=== PATIENT | male | born 1960 | race Caucasian/White ===

== ENCOUNTER 2021-04-17 13:05 | Outpatient (CLI) | payer BC, SELFPAY ==
--- NOTE | 2021-04-17 | ECHO_ITS ---
Patient Info Name: Ariel Zambrano Age: 60 years : 1960 Gender: Male Ht: 72 in Wt: 280 lbs BSA: 2.59 m2 HR: 87 bpm BP: 137 / 78 mmHg Technical Quality: Fair Exam Date: 04/17/2021 1:29 PM Exam Location: [facility] Patient Status: Outpatient Admit Date: 04/17/2021 Staff Ordering Physician: Bob, Lashell NARANJO Concrete Craftsman: Dolores Berry RDCS Attending Provider: Bob, Lashell NARANJO Referring Physician: Bob AIKEN; Exam Type: CA echo doppler color flow Study Info Indications - dyspnea hx/o cad stent Complete two-dimensional, color flow and Doppler transthoracic echocardiogram is performed. Summary 1. Complete two-dimensional, color flow and Doppler transthoracic echocardiogram is performed. 2. Mild LV enlargement, mild LVH; normal LV systolic function, ejection fraction 65-70%; grade 1 diastolic dysfunction. Mild RV enlargement with mild hypokinesis. Mild left atrial enlargement. Normal mitral valve structure, no significant MR. Normal aortic valve structure, no aortic stenosis or regurgitation. Trivial TR, RVSP 35 mmHg. Sinus bradycardia. Left Ventricle Left ventricular chamber dimension is mildly enlarged. Left ventricular systolic function is normal, estimated at 65-70%. There is mildly increased left ventricular wall thickness. The left ventricular diastolic function is grade I diastolic dysfunction. Right Ventricle Right ventricular chamber dimension is mildly enlarged. Right ventricular systolic function is reduced. Left Atria Left atrial chamber dimension is mildly enlarged. Right Atria Right atrial chamber dimension is normal. Aortic Valve The aortic valve is normal. There is no aortic valve stenosis. Pulmonic Valve The pulmonic valve is not well visualized. Mitral Valve The mitral valve has normal leaflets. There is no mitral valve regurgitation. Tricuspid Valve The tricuspid valve leaflets are normal. There is trace tricuspid valve regurgitation. Inferior Vena Cava Normal inferior vena cava with >50% collapse upon inspiration consistent with normal right atrial pressure, 10 mmHg. Aorta The aortic root size at the sinus of Valsalva is normal. Left Ventricular Outflow Tract Name Value Normal LVOT 2D LVOT Diameter 2.1 cm LVOT Doppler LVOT Peak Gradient 5 mmHg LVOT Mean Gradient 3 mmHg LVOT VTI 29 cm LVOT VTI/AV VTI Ratio 1.1 LVOT Stroke Volume 98 ml LVOT CO 17.7 l/min LVOT CI 6.8 l/min/m2 Pulmonic Valve Name Value Normal PV Doppler PV Peak Gradient 3 mmHg Mitral Valve Name
== END 2021-04-17 13:06 | disposition home or self-care (01) ==
PROVIDERS: PCP Physician Assistant; Visit Provider Physician Assistant
DX: R06.00 Dyspnea, unspecified (principal)
CPT/HCPCS: 93306

== ENCOUNTER 2021-04-21 18:26 | Emergency (ER) | payer BC, SELFPAY ==
[2021-04-21 18:37] VITALS: BP 124/73; PULSE 58; RESP 18; TEMP 36.4; O2SAT 97
[2021-04-21 18:47] VITALS: BP 124/73; PULSE 58; RESP 18; TEMP 36.4; O2SAT 97
--- NOTE | 2021-04-21 19:01 | ED.SKABFB ---
HPI - Skin/Abscess/Foreign Bdy General Chief complaint: Skin/Abscess/Foreign Body Stated complaint: rash Time Seen by Provider: 04/21/21 18:49 Source: patient and RN notes reviewed Mode of arrival: ambulatory Limitations: no limitations History of Present Illness HPI narrative: Patient presents today complaining of bilateral arm rash x2 days. Believes his rash started after he pet feral cat. Reports some itching and denies pain. He has tried some calamine lotion without relief. Patient does take Eliquis. He has a dressing to his right wrist due to a debridement surgery after a cat scratch a few months ago. This wound continues to heal. MD complaint: rash Related Data Home Medications Medication Instructions Recorded Confirmed apixaban [Eliquis] mg 04/21/21 atorvastatin 04/21/21 gabapentin 04/21/21 metoprolol succinate PO 04/21/21 Allergies Allergy/AdvReac Type Severity Reaction Status Date / Time sertraline Allergy Severe Unknown Verified 04/21/21 18:35 Review of Systems Review of Systems: CONSTITUTIONAL: Denies body aches, fever, chills, or sweats. EYES: Denies visual changes, redness, or discharge. ENT: Denies rhinorrhea, congestion, sore throat, or otalgia. CARDIOVASCULAR: Denies chest pain, palpitations, or edema. RESPIRATORY: Denies cough or dyspnea. GASTROINTESTINAL: Denies abdominal pain, nausea, vomiting, or diarrhea. GENITOURINARY: Denies dysuria or hematuria. SKIN: Denies wounds.+ Pruritic rash MUSCULOSKELETAL: Denies back pain, joint pain, or myalgia. NEUROLOGIC: Denies headache, numbness, tingling, or weakness. PSYCH: Denies depression or anxiety. [facility] Past Medical History Medical History (Updated 04/21/21 @ 19:06 by Joanne Mathis, [facility], ) High cholesterol History of DVT (deep vein thrombosis) History of pulmonary embolism Social History Social History Smoking status: Never smoker Second hand tobacco smoke exposure: No Alcohol intake: never Comments At time of signature, I have reviewed and agree with nursing past medical, surgical, social and family history unless otherwise noted. Please see nursing chart for further information. There is no relevant family history pertinent to the presenting complaint Exam Narrative: GENERAL: Well-appearing, well-nourished, and in no acute distress. HEAD: Normocephalic, atraumatic. EYES: EOMI. No redness or drainage. Conjunctivae normal. ENT: Mucous membranes pink and moist. NECK: Normal AROM. CHEST: No respiratory distress. EXTREMITIES: Normal range of motion. No edema. SKIN: Warm, dry. Capillary refill normal. Normal skin turgor. Petechial rash to bilateral forearms and left upper arm. Petechiae has formed around the rash on the left arm, likely secondary to Eliquis use. No signs of secondary bacterial infection. Surgical scar noted to the right forearm. NEURO: No focal deficits. Alert and oriented x3. Gait steady. PSYCH: Normal affect. No signs of depression or anxiety. Course Vital Signs Vital signs: Vital Signs Temperature 97.6 F 04/21/21 18:37 Pulse Rate 58 L 04/21/21 18:37 Respiratory Rate 18 04/21/21 18:37 Blood Pressure 124/73 04/21/21 18:37 Pulse Oximetry 97 04/21/21 18:37 Temperature 97.6 F 04/21/21 18:47 Pulse Rate 58 L 04/21/21 18:47 Respiratory Rate 18 04/21/21 18:47 Blood Pressure 124/73 04/21/21 18:47 Pulse Oximetry 97 04/21/21 18:47 Reviewed. Pt has been instructed to follow up with his PCP regarding his elevated blood pressure today. MDM - Skin/Abscess/Foreign Bdy Differential Diagnosis Differential diagnosis: Likely viral exanthem, urticaria, cellulitis, eczema, insect bites, impetigo and contact dermatitis Critical Care Time Critical Care Time Critical Care Time: No Discharge Plan Discharge Clinical Impression: Contact dermatitis Qualifiers: Contact dermatitis type: unspecified Contact dermatitis trigger: unspecified trigger Qualified Code(s):
== END 2021-04-21 19:09 | disposition home or self-care (01) ==
PROVIDERS: Emergency Provider Nurse Practitioner
DX: L25.9 Unspecified contact dermatitis, unspecified cause (principal); E78.00 Pure hypercholesterolemia, unspecified; Z86.718 Personal history of other venous thrombosis and embolism; Z86.711 Personal history of pulmonary embolism
CPT/HCPCS: 99213; G0463

== ENCOUNTER 2021-05-08 16:21 | Emergency (ER) | payer BC, SELFPAY ==
[2021-05-08 16:27] VITALS: BP 121/85; PULSE 54; RESP 16; TEMP 36.2; O2SAT 96
--- NOTE | 2021-05-08 16:48 | ED.SKABFB ---
HPI - Skin/Abscess/Foreign Bdy General Chief complaint: Skin/Abscess/Foreign Body Stated complaint: rash Time Seen by Provider: 05/08/21 16:48 Source: patient and RN notes reviewed Mode of arrival: ambulatory Limitations: no limitations History of Present Illness HPI narrative: 60-year-old male presents to the [facility] with complaints of a reoccurring rash. Was here on the sixth, 2-1/2 weeks ago and diagnosed with contact dermatitis after petting a cat. Was prescribed prednisone, followed up with primary care provider who then prescribed him doxycycline. Patient reports that he finished his doxycycline. Related Data Home Medications Medication Instructions Recorded Confirmed apixaban [Eliquis] mg 04/21/21 atorvastatin 04/21/21 gabapentin 04/21/21 metoprolol succinate PO 04/21/21 Allergies Allergy/AdvReac Type Severity Reaction Status Date / Time sertraline Allergy Severe Unknown Verified 05/08/21 16:47 Review of Systems Review of Systems: All systems reviewed & are unremarkable except as noted in HPI and below Constitutional: Constitutional: Reports no additional constitutional complaints, Denies chills and Denies fever(s) Eyes: Eyes: Reports no additional eye complaints ENT: Reports system reviewed and no additional complaints, except as documented Cardiovascular: Cardiovascular: Reports no additional cardiovascular complaints and Denies chest pain Respiratory: Respiratory: Reports no additional respiratory complaints, Denies chest congestion, Denies cough, Denies dyspnea and Denies wheezing Gastrointestinal: Gastrointestinal: Reports no additional gastrointestinal complaints Musculoskeletal: Musculoskeletal: Reports no additional musculoskeletal complaints, Denies back pain, Denies myalgias, Denies arthralgias, Denies joint swelling and Denies muscle cramps Integumentary/Breasts: Skin/Breast: Reports as per HPI and Reports rash (Bilateral arms) Neurologic: Reports system reviewed and no additional complaints, except as documented Psychiatric: Psychiatric: Reports no additional psychiatric complaints Allergic/Immunologic: Allergic/Immunologic: Reports no additional allergic/immunologic complaints [facility] Past Medical History Medical History (Updated 05/08/21 @ 16:54 by Ca Jenkins) High cholesterol History of DVT (deep vein thrombosis) History of pulmonary embolism Social History Social History Smoking status: Never smoker Second hand tobacco smoke exposure: No Alcohol intake: never Comments At the time of my signature, I reviewed and agree with the nursing past medical, surgical, social, and family history. There is no relevant family history pertinent to the patient complaint. Exam Const: General: healthy appearing, no acute distress and alert Nutritional Appearance: obese Orientation/consciousness: patient oriented x3 Limitations: no limitations HENMT: Head: normal to inspection Ears: external ears normal Eyes: Conjunctivae: conjunctivae normal Pupils: Equal, round and reactive pupils present Neck: Neck: normal visual inspection, no lymphadenopathy and no meningeal signs Chest: Chest palpation & inspection: normal inspection of the chest Resp: Effort & Inspection: normal respiratory effort and no use of accessory muscles Auscultation: clear to auscultation bilaterally, no crackles, no rales, no rhonchi and no wheezes Cardio: Rate: regular rate Rhythm: regular rhythm Back/Spine/Pelvis: Back: no CVA tenderness Skin: Other: Rashes bilateral arms red, patient describes as itchy. Neuro: General: patient oriented x3, moves all extremities, no meningeal signs and no focal motor deficits Speech: normal speech Gait exam (Neuro): Normal gait present Extrem: General: normal to inspection Psych: Appearance: grossly normal and well kempt Mental Status: mental status grossly normal Affect: normal affect Attitude: cooperat
== END 2021-05-08 16:58 | disposition home or self-care (01) ==
PROVIDERS: Emergency Provider Nurse Practitioner
DX: L23.81 Allergic contact dermatitis due to animal (cat) (dog) dander (principal); E78.00 Pure hypercholesterolemia, unspecified; Z86.718 Personal history of other venous thrombosis and embolism; Z86.711 Personal history of pulmonary embolism
CPT/HCPCS: 99213; G0463

== ENCOUNTER 2021-06-13 09:08 | Outpatient (RCR) | payer BC, SELFPAY ==
--- NOTE | 2021-06-13 09:24 | PCPTNOTE ---
pt here for PT eval; he has an open wound on L lower leg with dressing intact. And multiple areas of scabs and red areas over both R and L lower legs. Pt stated he is to go to wound care for his legs, but has not figured out where to go with his insurance yet. Discussed basic lymphedema treatment with him- elevate legs, perform active ankle exercises and walk as tolerated, heal wounds first, then therapy for MLD, treatment and compression knee high garments. He voiced understanding--will go to wound care then return for PT treatment. Issued pt a card with PT name and number for any additional questions.
== END 2021-08-28 12:42 | disposition home or self-care (01) ==
LOC: ANHPT 09:08
PROVIDERS: PCP Physician Assistant
DX: I87.2 Venous insufficiency (chronic) (peripheral) (principal); I89.0 Lymphedema, not elsewhere classified
CPT/HCPCS: 99199

== ENCOUNTER 2021-07-10 07:29 | Outpatient (RCR) | payer BC, SELFPAY ==
--- NOTE | 2021-06-26 10:47 | PM.CNGS ---
Assessment and Plan Assessment and plan (1) Venous stasis ulcer: Code(s): I83.009 - Varicose veins of unspecified lower extremity with ulcer of unspecified site; L97.909 - Non-pressure chronic ulcer of unspecified part of unspecified lower leg with unspecified severity Status: Acute Assessment and Plan: Patient has multiple lower extremity ulcers and weeping edema. He was seen with the wound care nurses in the wound clinic. Wound photos and measurements taken for initial evaluation. Will apply silver gel and Mepilex to open wounds. Will also do bilateral lower extremity wraps to help with edema. Discussed leg elevation and low-sodium diet to help with edema. Continue medical management with furosemide per PCP. Patient denies prior history of peripheral vascular disease, but dorsalis pedis pulses are faintly dopplerable. I would like to get duplex arterial ultrasound and ABIs to help assess if he needs vascular surgery evaluation. Will arrange this to be done as an outpatient. Will plan to us have patient return to wound clinic twice weekly initially. I will see him back in 2 weeks in the wound clinic to reassess. (2) Bilateral lower extremity edema: Code(s): R60.0 - Localized edema Status: Acute Assessment and Plan: Bilateral lower extremity wraps. (3) Peripheral vascular disease: Code(s): I73.9 - Peripheral vascular disease, unspecified Status: Acute Assessment and Plan: Check duplex arterial lower extremity ultrasound and ABIs (4) Tobacco use: Code(s): Z72.0 - Tobacco use Status: Acute Assessment and Plan: discussed smoking cessation. Patient had previously quit smoking but has restarted smoking which he says is due to stress. (5) HTN (hypertension): Code(s): I10 - Essential (primary) hypertension Status: Inactive (6) High cholesterol: Code(s): E78.00 - Pure hypercholesterolemia, unspecified Status: Inactive (7) CAD (coronary artery disease): Code(s): I25.10 - Atherosclerotic heart disease of [place] coronary artery without angina pectoris Status: Inactive (8) History of DVT (deep vein thrombosis): Code(s): Z86.718 - Personal history of other venous thrombosis and embolism Status: Inactive History of Present Illness Consult details Consult date: 06/26/21 Reason for consult: wound care Requesting physician: BobLashell PA Narrative: A 60-year-old man who presents with bilateral lower extremity wounds. He states that he has had problems with swelling and circulation in his legs for years, but over the past several months he has had multiple wounds developed. He has had blisters that opened drained serous fluid. Now he has multiple wounds that are not healing. He denies a prior history of diabetes. He has had a history of DVT PE. He has been trying a triple antibiotic ointment on the wounds, but this has not been helping. He was recently started on furosemide to help with lower extremity edema. He denies claudication. Review of Systems Review of Systems: All systems reviewed & are unremarkable except as noted in HPI and below Constitutional: Constitutional: Denies chills, Denies fever(s), Denies headache(s) and Denies weight loss Eyes: Eyes: Denies change in vision ENT: Denies dizziness, Denies headache(s), Denies neck mass and Denies throat swelling Cardiovascular: Cardiovascular: Denies chest pain, Denies lightheadedness and Denies dyspnea Respiratory: Respiratory: Denies cough, Denies dyspnea and Denies wheezing Gastrointestinal: Gastrointestinal: Denies abdominal pain, Denies change in bowel habits, Denies nausea and Denies vomiting Genitourinary: Genitourinary: Denies hematuria and Denies dysuria Musculoskeletal: Musculoskeletal: Reports as per HPI Integumentary/Breasts: Skin/Breast: Reports as per HPI Neurologic: Denies dizziness and Denies headache(s) Allergi
[2021-06-26 11:05] VITALS: BMI 40.2
--- NOTE | 2021-07-10 13:19 | PCWOUND ---
WOCN NOTE Patient seen at [facility] wound [place] for treatment of venous stasis ulcers to the bilateral lower legs. Patient changes his dressings daily. For a 30 day supply: Patient uses 4 Mepilex transfer per change(120/month), 5 ABD pads per change (180/month) and 2 kerlex rolls per change (60/month).
--- NOTE | 2021-07-14 16:27 | P.PNWOUND_ITS ---
Wound Care Note Date/Time: 07/10/21 11:00 History: Patient presented to wound clinic on 06/26/2021 with multiple bilateral lower extremity ulcers. He was also noted to have weeping 4+ pitting edema. Local wound care with compression dressings and topical ointments were applied. At the time of initial visit, lower extremity pulses were somewhat weak but dopplerable. Arterial workup was discussed and lower extremity arterial ultrasound and ABIs was going to be ordered. Before able to set this up, patient then presented to [facility] for further workup. No further vascular workup was done at that time, however he was given instructions to follow-up with a vascular surgeon from [facility]. Patient states that when he called to make this appointment he found out that this vascular surgeon did not take his insurance. He has also previously been denied at [place] due to insurance as well. His wounds have continued to worsen despite local treatment. He is also experiencing a lot of pain with his lower extremities. Wound history: Multiple bilateral lower extremity ulcers with 4+ weeping edema. Wound approximation: No Drainage: Serous Dressings: silver gel with Mepilex transfers applied Assessment and Plan Assessment and plan (1) Venous stasis ulcer: Code(s): I83.009 - Varicose veins of unspecified lower extremity with ulcer of unspecified site; L97.909 - Non-pressure chronic ulcer of unspecified part of unspecified lower leg with unspecified severity Status: Acute Assessment and Plan: * Local wound care of the venous stasis ulcers has not helped with any improvement of the wounds. He is now having more constant leg pain which has me concerned for vascular inflow problems. He went to the emergency department previously but unfortunately had no further arterial vascular workup completed at that time. I discussed with patient that we do not have a vascular surgeon on staff here at this hospital and he may need to present to another emergency department for further workup. I will try to find a vascular surgeon that will accept his insurance to see him as soon as possible, but I did reiterate that he may need to go to the emergency department if this has not been resolved in the next couple days. Will have patient continue local wound care at this time and arrange for the supplies needed, but further follow-up in this wound clinic will not likely be of much benefit given his current condition. (2) Bilateral lower extremity edema: Code(s): R60.0 - Localized edema Status: Acute (3) Peripheral vascular disease: Code(s): I73.9 - Peripheral vascular disease, unspecified Status: Acute (4) Tobacco use: Code(s): Z72.0 - Tobacco use Status: Acute Exam Extrem: Other: multiple bilateral lower extremity ulcers with 4+ pitting edema. Yellow exudate present and wound bases. Tenderness throughout lower extremities.
== END 2021-09-11 08:20 | disposition home or self-care (01) ==
LOC: ANHWOC 07:29
PROVIDERS: PCP Physician Assistant; Visit Provider Surgery
DX: L97.819 Non-pressure chronic ulcer of other part of right lower leg with unspecified severity (principal); L97.829 Non-pressure chronic ulcer of other part of left lower leg with unspecified severity
CPT/HCPCS: 29581; 99212; A9270; G0463

== ENCOUNTER 2022-02-25 05:01 | Inpatient (IN) | payer BC, SELFPAY ==
--- NOTE | ~2022-02-25 | CT_ITS ---
EXAMINATION: CT abdomen pelvis wo con DATE: 02/25/2022 06:05 INDICATION: Epigastric pain with nausea and vomiting TECHNIQUE: Computed tomography (CT) of the abdomen and pelvis was performed without intravenous contr ast. The dose-length product was 1472.32 mGy-cm. Automated exposure control and iterative reconstruct ion technique were employed. COMPARISON: CT dated 04/13/2011 FINDINGS: There is dependent atelectasis. No significant pleural or pericardial effusion. There is pe ripancreatic infiltration of the fat consistent with acute pancreatitis. There are punctate pancreati c calcifications suggesting chronic pancreatitis. Calcified granulomas of the liver and spleen are present. Gallbladder is present. The adrenal glands and kidneys are unremarkable. Bladder is decompressed. Nonobstructive bowel gas pattern. Colonic dive rticulosis without evidence for diverticulitis. Normal appendix. No free air or free fluid. Left comm on iliac vein stent is present. IMPRESSION: 1. Acute uncomplicated pancreatitis. Reviewed, dictated and finalized at location A.
[2022-02-25 05:10] VITALS: BP 217/103; PULSE 60; RESP 16; TEMP 36.2; O2SAT 98
--- NOTE | 2022-02-25 05:20 | ECG_ITS ---
Measurements Intervals [place] Rate: 65 P: 64 NM: 161 QRS: 20 QRSD: 82 T: 33 QT: 418 QTc: 436 Interpretive Statements SINUS RHYTHM NONSPECIFIC ST ABNORMALITY. ABNORMAL ECG NO PREVIOUS ECG AVAILABLE FOR COMPARISON Electronically Signed On 02-25-2022 11:07:49 CDT by Sylvester Spicer M.D.
[2022-02-25] MEDS: SODIUM CHLORIDE 0.9% IV 1,000 ML 999 ML IV CONT (05:35)
[2022-02-25] MEDS: ONDANSETRON INJ 4 MG/2 ML VIAL IV PUSH ×6 (05:35→21:14)
[2022-02-25] MEDS: MORPHINE SULFATE (*CRX) 4 MG/ML INJ IV PUSH ×2 (05:35→07:50)
--- NOTE | 2022-02-25 05:40 | ED.ABDPAIN ---
HPI - Abdominal Pain General Chief Complaint: Abdominal Pain Stated Complaint: abd pain and nausea Time Seen by Provider: 02/25/22 05:10 Source: patient History of Present Illness HPI narrative: Patient presents with abdominal pain. Patient reports pain started few hours prior to coming to the ER for evaluation. Pain is in his epigastric area is constant no radiation, no clear aggravating or alleviating factors for suggest hurts. He does report nausea and vomiting denies any diarrhea fevers cough congestion. He reports he never had pain like this before. He denies any urinary symptoms lightheadedness or dizziness. Denies any chest pain or shortness of breath. Related Data Home Medications Medication Instructions Recorded Confirmed apixaban 5 mg tablet (Eliquis) 5 mg PO DAILY 04/21/21 06/26/21 atorvastatin 80 mg tablet 80 mg PO HS 04/21/21 06/26/21 gabapentin 600 mg tablet 600 mg PO TID 04/21/21 06/26/21 metoprolol succinate 25 mg 25 mg PO DAILY 04/21/21 06/26/21 tablet,extended release 24 hr furosemide 40 mg tablet 40 mg PO DAILY 06/26/21 06/26/21 prednisone 10 mg tablet 10 mg PO DAILY 06/26/21 06/26/21 Allergies Allergy/AdvReac Type Severity Reaction Status Date / Time No Known Allergies Allergy Verified 02/25/22 05:14 Review of Systems Review of Systems: CONSTITUTIONAL: Denies fever, chills, or sweats. EYES: Denies visual changes, redness, or discharge. ENT: Denies rhinorrhea, congestion, sore throat, or otalgia. CARDIOVASCULAR: Denies chest pain, palpitations, or edema. RESPIRATORY: Denies cough or dyspnea. GASTROINTESTINAL: Abdominal pain with nausea and vomiting GENITOURINARY: Denies dysuria or hematuria. SKIN: Denies rash or itching. MUSCULOSKELETAL: Denies back pain, joint pain, or myalgia. NEUROLOGIC: Denies headache, numbness, dizziness, or weakness. PSYCHIATRIC: Denies anxiety or depression. All systems reviewed & are unremarkable except as noted in HPI and below PMFSH Past Medical History Medical History CAD (coronary artery disease) COPD (chronic obstructive pulmonary disease) High cholesterol History of DVT (deep vein thrombosis) History of pulmonary embolism HTN (hypertension) Surgical History Surgical History History of heart artery stent Hx of hand surgery Family History Family History Mother Ovarian cancer Social History Social History Smoking packs per day: 0.5 Smoking cigarettes per day: 10.0 Smoking status: Current every day smoker Tobacco type: cigarettes Alcohol intake: never Substance use: never Course Reevaluation(s) Reevaluation #1: Patient updated on results given imaging and lab findings patient would benefit from inpatient management of his symptoms. Patient is comfortable with inpatient plan. Patient admitted to the hospitalist team for further management. Date: 02/25/22 Time: 07:15 Vital Signs Vital signs: Vital Signs Temperature 36.2 C L 02/25/22 05:10 Pulse Rate 60 02/25/22 05:10 Respiratory Rate 16 02/25/22 05:10 Blood Pressure 217/103 H 02/25/22 05:10 Pulse Oximetry 98 02/25/22 05:10 Oxygen Delivery Room Air 02/25/22 05:10 Temperature 36.2 C L 02/25/22 05:10 Pulse Rate 73 02/25/22 07:10 Respiratory Rate 22 H 02/25/22 07:10 Blood Pressure 193/94 H 02/25/22 07:10 Pulse Oximetry 97 02/25/22 07:10 Oxygen Delivery Room Air 02/25/22 05:10 MDM - Abdominal Pain MDM Narrative Medical decision making narrative: Patient presented with epigastric pain as well as nausea and vomiting. Patient. Mild distress due to pain with tenderness in the epigastric area. Labs and imaging obtained. Imaging concerning for acute pancreatitis labs notable for elevated lipase. Clinical picture is co
[2022-02-25 05:51] LABS: Basophils Percent Auto 0.3 % (0.2-1.2); Eosinophils Absolute Auto 0.2 K/mm3 (0-0.3); Eosinophils Percent Auto 1.6 % (0-4.4); Hematocrit 47.7 % (42.0-52.0); Hemoglobin 15.2 g/dL (14.0-18.0); Immature Granulocyte Absolute 0.07 K/mm3 (0.00-0.031); Immature Granulocyte Percent A 0.6 % (0-0.5); Lymphocytes Percent Auto 21.8 % (18.3-44.2); Mean Corpuscular HGB Conc 31.9 g/dl (32-36); Mean Corpuscular Hemoglobin 29.9 pg (26-34); Mean Corpuscular Volume 93.7 fl (80-100); Mean Platelet Volume 10.1 fl (7.4-10.4); Monocytes Absolute Auto 0.8 K/mm3 (0.1-0.6); Monocytes Percent Auto 7.3 % (2.6-8.5); Neutrophils Absolute Auto 7.9 K/mm3 (1.3-6.7); Neutrophils Percent Auto 68.4 % (45.5-73.1); Platelet Count Result 327 k/mm3 (150-375); Red Blood Count 5.09 M/mm3 (4.6-6.20); White Blood Count 11.5 K/mm3 (4.5-10.0)
--- NOTE | 2022-02-25 06:09 | ECG_ITS ---
Measurements Intervals [place] Rate: 70 P: 62 GA: 168 QRS: 25 QRSD: 74 T: 42 QT: 388 QTc: 420 Interpretive Statements SINUS RHYTHM NONSPECIFIC ST ABNORMALITY ABNORMAL ECG COMPARED TO ECG 02/25/2022 05:31:35 NO SIGNIFICANT CHANGES Electronically Signed On 02-25-2022 11:08:32 CDT by Sylvester Spicer M.D.
[2022-02-25 06:12] LABS: Troponin I < 0.012 ng/mL (0.000-0.034)
[2022-02-25 06:20] LABS: Alanine Aminotransferase 39 U/L (6-50); Albumin Level 3.9 g/dL (3.5-5.1); Alkaline Phosphatase 108 U/L (38-126); Anion Gap 3 mmol/L (8-16); Aspartate Amino Transferase 40 U/L (17-59); Bilirubin,Total 0.4 mg/dL (0.2-1.3); Blood Urea Nitrogen 15 mg/dL (9-20); Carbon Dioxide 32 mmol/L (22-30); Chloride 102 mmol/L (98-107); Estimated CRCL calculation 117 ml/min; Estimated Glomerular Filt Rate > 60; Glucose 126 mg/dL (65-110); Potassium 4.4 mmol/L (3.4-5.0); Sodium 137 mmol/L (137-145)
--- NOTE | 2022-02-25 06:29 | PC.NURSE ---
pt reports unable to provide urine sample at this time. pt refusing straight catheter.
[2022-02-25 06:42] LABS: Lipase 10199 U/L (23-300)
[2022-02-25 07:10] VITALS: BP 193/94; PULSE 73; RESP 22; O2SAT 97
--- NOTE | 2022-02-25 07:10 | PC.NURSE ---
change of shift. received report from afshin. assumed care of pt at this time.
[2022-02-25] MEDS: SODIUM CHLORIDE 0.9% IV 1,000 ML 150 ML IV CONT ×3 (07:51→21:14)
--- NOTE | 2022-02-25 07:52 | PC.NURSE ---
asked pt for urine. states i dont need to go Asked pt to at least try. He states that he will try in a little bit
[2022-02-25 07:54] LABS: Cholesterol 157 mg/dL (0-200); HDL Direct 38 mg/dL; Triglycerides 115 mg/dL (<150)
[2022-02-25 08:04] LABS: LDL Cholesterol Direct 84 mg/dL
[2022-02-25 08:17] VITALS: BP 192/86; PULSE 72; RESP 24; O2SAT 95
[2022-02-25 08:24] LABS: Appearance Urine Clear (Clear); Bilirubin Urine Negative (Negative); Blood Urine 3+ (Negative); Color Urine Yellow (Yellow); Glucose Urine UA Negative (Negative); Ketones Urine Negative (Negative); Leukocyte Esterase Ur Negative LEU/UL (Negative); Nitrate Urine Negative (Negative); Protein Urine 1+ mg/dL (Negative); Specific Grav Ur >= 1.030 (1.001-1.035); Urobilinogen Urine 0.2 mg/dL (<2.0)
[2022-02-25 08:29] LABS: Add Urine Microscopic? YES; Budding Yeast Urine Present /hpf; Mucus Urine Rare /lpf; RBC Urine 51-75 /hpf (0-2); WBC Urine 0-3 /hpf
[2022-02-25 09:30] VITALS: BP 192/86; PULSE 72; RESP 24; O2SAT 95
[2022-02-25 10:05] VITALS: BMI 39.3
--- NOTE | 2022-02-25 11:02 | PC.NURSE ---
pt is wearing compression stockings bilaterally. pt's left leg is wrapped with what appears gauze and shadia bandage at present. Pt stated that he received wound care at [place] and was instructed to change the dressing every (once/week). Pt stated that he was also instructed that he will have to wear compression stocking for the rest of his life (he didn't know why); and, that he was told that his wound was due to edema.
--- NOTE | 2022-02-25 12:52 | PM.IMHP ---
H&P: HPI History of Present Illness Date/Time: 02/25/22 12:52 Chief Complaint: abdominal pain Narrative: ED-HPI Patient presents with abdominal pain.? Patient reports pain started few hours prior to coming to the ER for evaluation.? Pain is in his epigastric area is constant no radiation, no clear aggravating or alleviating factors for suggest hurts.? He does report nausea and vomiting denies any diarrhea fevers cough congestion.? He reports he never had pain like this before.? He denies any urinary symptoms lightheadedness or dizziness.? Denies any chest pain or shortness of breath. patient with abdominal pain CT scan of the abdomen showed acute uncomplicated pancreatitis patient lipase elevated [id number], patient has no history that would cause acute pancreatitis, patient denies any alcohol consumption on a regular basis no family history of pancreatitis, patient liver enzymes are normal suggesting no gallbladder issue or obstruction of bile duct, patient lipid panel is normal with normal triglycerides, most likely patient has idiopathic pancreatitis to further evaluate I have ordered PHI level to rule out immunological issues, will vigorously hydrate the patient and provide pain controlled, and keep patient NPO, will monitor patient lipase is his lipase trended down will start on clear liquid and advance diet as tolerated, will continue to monitor. patient admitted observation status Review of Systems Review of Systems: CONSTITUTIONAL: Denies fever, chills, or sweats. EYES: Denies visual changes, redness, or discharge. ENT: Denies rhinorrhea, congestion, sore throat, or otalgia. CARDIOVASCULAR: Denies chest pain, palpitations, or edema. RESPIRATORY: Denies cough or dyspnea. GASTROINTESTINAL: Abdominal pain with nausea and vomiting GENITOURINARY: Denies dysuria or hematuria. SKIN: Denies rash or itching. MUSCULOSKELETAL: Denies back pain, joint pain, or myalgia. NEUROLOGIC: Denies headache, numbness, dizziness, or weakness. PSYCHIATRIC: Denies anxiety or depression. All systems reviewed & are unremarkable except as noted in HPI and below PMFSH Past Medical History Medical History CAD (coronary artery disease) COPD (chronic obstructive pulmonary disease) High cholesterol History of DVT (deep vein thrombosis) History of pulmonary embolism HTN (hypertension) Surgical History Surgical History History of heart artery stent Hx of hand surgery Family History Family History Mother Ovarian cancer Social History Social History Smoking packs per day: 0.5 Smoking cigarettes per day: 10.0 Smoking status: Current every day smoker Tobacco type: cigarettes Alcohol intake: former Substance use: never Substance use type: does not use Spiritual care concerns: No Meds Home Medications and Allergies Home Medications Medication Instructions Recorded Confirmed Type apixaban 5 mg tablet (Eliquis) 5 mg PO BID 04/21/21 02/25/22 History atorvastatin 80 mg tablet 80 mg PO HS 04/21/21 02/25/22 History gabapentin 600 mg tablet 600 mg PO TID 04/21/21 02/25/22 History metoprolol succinate 25 mg 25 mg PO DAILY 04/21/21 02/25/22 History tablet,extended release 24 hr prednisone 50 mg tablet 50 mg PO DAILY #5 tabs 05/08/21 02/25/22 Rx furosemide 40 mg tablet 40 mg PO DAILY 06/26/21 02/25/22 History prednisone 10 mg tablet 10 mg PO DAILY 06/26/21 02/25/22 History ergocalciferol (vitamin D2) 1,250 50,000 unit PO WEEKLY 02/25/22 02/25/22 History mcg (50,000 unit) capsule (Vitamin D2) Allergies Allergy/AdvReac Type Severity Reaction Status Date / Time No Known Allergies Allergy Verified 02/25/22 05:14 Vital Signs Vital Signs - 24 hr 02/25/22 05:10 02/25/22 07:10 02/25/22 08:
[2022-02-25] MEDS: HEPARIN SODIUM 5,000 UNITS/ML VIAL 5000 UNITS SUB-Q ×2 (13:57→22:42)
[2022-02-25] MEDS: HYDROmorphone HCL INJ (*CRX) 1 MG/ML SYR 0.5 MG IV PUSH ×3 (13:57→21:14)
[2022-02-25 20:00] VITALS: BP 159/94; PULSE 81; RESP 20; TEMP 36.4; O2SAT 94
[2022-02-26] VITALS (7 sets, daily range): BP systolic 165–174; BP diastolic 82–96; PULSE 69–82; RESP 20–22; TEMP 36.6–36.9; O2SAT 90–94
[2022-02-26] MEDS: PROMETHAZINE HCL 25 MG/ML AMPUL IM (01:41)
[2022-02-26] MEDS: HYDROmorphone HCL INJ (*CRX) 1 MG/ML SYR 0.5 MG IV PUSH ×4 (01:42→21:59)
[2022-02-26] MEDS: SODIUM CHLORIDE 0.9% IV 1,000 ML 150 ML IV CONT ×3 (04:20→18:52)
[2022-02-26] MEDS: METOPROLOL TARTRATE INJ 5 MG/5 ML VIAL IV PUSH ×4 (05:44→22:00)
[2022-02-26 06:18] LABS: Hematocrit 52.2 % (42.0-52.0); Hemoglobin 16.1 g/dL (14.0-18.0); Mean Corpuscular HGB Conc 30.8 g/dl (32-36); Mean Corpuscular Hemoglobin 29.8 pg (26-34); Mean Corpuscular Volume 96.5 fl (80-100); Mean Platelet Volume 9.9 fl (7.4-10.4); Platelet Count Result 302 k/mm3 (150-375); Red Blood Count 5.41 M/mm3 (4.6-6.20); White Blood Count 13.7 K/mm3 (4.5-10.0)
[2022-02-26 06:30] LABS: Sodium 138 mmol/L (137-145)
[2022-02-26 06:35] LABS: Alanine Aminotransferase 32 U/L (6-50); Albumin Level 4.1 g/dL (3.5-5.1); Alkaline Phosphatase 120 U/L (38-126); Anion Gap 7 mmol/L (8-16); Aspartate Amino Transferase 25 U/L (17-59); Bilirubin,Total 0.5 mg/dL (0.2-1.3); Blood Urea Nitrogen 8 mg/dL (9-20); Calcium 8.9 mg/dL (8.4-10.2); Carbon Dioxide 26 mmol/L (22-30); Chloride 105 mmol/L (98-107); Estimated CRCL calculation 129 ml/min; Estimated Glomerular Filt Rate > 60; Glucose 68 mg/dL (65-110); Potassium 4.2 mmol/L (3.4-5.0)
[2022-02-26 07:14] LABS: Lipase 724 U/L (23-300)
[2022-02-26] MEDS: HEPARIN SODIUM 5,000 UNITS/ML VIAL 5000 UNITS SUB-Q ×2 (13:37→21:55)
--- NOTE | 2022-02-26 14:12 | PM.IMPN ---
Progress Note: A&P Assessment and Plan (1) Acute pancreatitis: Qualifiers: Pancreatitis type: unspecified pancreatitis type Code(s): K85.90 - Acute pancreatitis without necrosis or infection, unspecified Status: Acute Assessment and Plan: ED-[facility] Patient presents with abdominal pain.? Patient reports pain started few hours prior to coming to the ER for evaluation.? Pain is in his epigastric area is constant no radiation, no clear aggravating or alleviating factors for suggest hurts.? He does report nausea and vomiting denies any diarrhea fevers cough congestion.? He reports he never had pain like this before.? He denies any urinary symptoms lightheadedness or dizziness.? Denies any chest pain or shortness of breath. patient with abdominal pain CT scan of the abdomen showed acute uncomplicated pancreatitis patient lipase elevated [id number], patient has no history that would cause acute pancreatitis, patient denies any alcohol consumption on a regular basis no family history of pancreatitis, patient liver enzymes are normal suggesting no gallbladder issue or obstruction of bile duct, patient lipid panel is normal with normal triglycerides, most likely patient has idiopathic pancreatitis to further evaluate I have ordered PHI level to rule out immunological issues, will vigorously hydrate the patient and provide pain controlled, and keep patient NPO, will monitor patient lipase is his lipase trended down will start on clear liquid and advance diet as tolerated, will continue to monitor. 02/26/2022 interval history: patient with abdominal pain CT scan of the abdomen showed acute uncomplicated pancreatitis upon arrival patient lipase elevated [id number], patient has no history that would cause acute pancreatitis, patient denies any alcohol consumption on a regular basis no family history of pancreatitis, patient liver enzymes are normal suggesting no gallbladder issue or obstruction of bile duct, patient lipid panel is normal with normal triglycerides, most likely patient has idiopathic pancreatitis to further evaluate I have ordered PHI level to rule out immunological issues which is pending patient being vigorously hydrated, and provide pain controlled, and keep patient NPO, today patient lipase have trended down to 724, will start the patient on clear liquid, will monitor patient and advance diet as tolerated, will continue to monitor (2) Peripheral vascular disease: Code(s): I73.9 - Peripheral vascular disease, unspecified Status: Acute Assessment and Plan: remains clinically stable (3) Bilateral lower extremity edema: Code(s): R60.0 - Localized edema Status: Acute Assessment and Plan: will continue to monitor and diurese the patient if needed (4) Tobacco use: Code(s): Z72.0 - Tobacco use Status: Acute Assessment and Plan: will give nicotine patch Subjective Date/time seen: 02/26/22 14:12 ED-HPI Patient presents with abdominal pain.? Patient reports pain started few hours prior to coming to the ER for evaluation.? Pain is in his epigastric area is constant no radiation, no clear aggravating or alleviating factors for suggest hurts.? He does report nausea and vomiting denies any diarrhea fevers cough congestion.? He reports he never had pain like this before.? He denies any urinary symptoms lightheadedness or dizziness.? Denies any chest pain or shortness of breath. 02/26/2022 interval history: patient with abdominal pain CT scan of the abdomen showed acute uncomplicated pancreatitis upon arrival patient lipase elevated [id number], patient has no history that would cause acute pancreatitis, patient denies any alcohol consumption on a regular basis no family history of pancreatitis, patient liver enzymes are normal suggesting no gallbladder issue or obstruction of bile duct, patient lipid panel is normal with normal triglycerides, most likely patient has idiopathi
[2022-02-27] MEDS: SODIUM CHLORIDE 0.9% IV 1,000 ML 150 ML IV CONT ×2 (01:44→08:41)
[2022-02-27 05:55] VITALS: PULSE 66
[2022-02-27] MEDS: HEPARIN SODIUM 5,000 UNITS/ML VIAL 5000 UNITS SUB-Q (05:55)
[2022-02-27] MEDS: METOPROLOL TARTRATE INJ 5 MG/5 ML VIAL IV PUSH (05:55)
[2022-02-27 06:00] VITALS: BP 162/86; PULSE 72; RESP 20; TEMP 36.4; O2SAT 94
[2022-02-27 06:43] LABS: Hemoglobin 14.7 g/dL (14.0-18.0); Mean Corpuscular Hemoglobin 29.8 pg (26-34); Mean Corpuscular Volume 93.1 fl (80-100); Mean Platelet Volume 10.1 fl (7.4-10.4); Platelet Count Result 261 k/mm3 (150-375); Red Blood Count 4.94 M/mm3 (4.6-6.20); Red Cell Distribution Width 13.1 % (11.5-14.5); White Blood Count 13.4 K/mm3 (4.5-10.0)
[2022-02-27 07:13] LABS: Alanine Aminotransferase 22 U/L (6-50); Albumin Level 3.4 g/dL (3.5-5.1); Alkaline Phosphatase 101 U/L (38-126); Anion Gap 4 mmol/L (8-16); Aspartate Amino Transferase 23 U/L (17-59); Bilirubin,Total 0.7 mg/dL (0.2-1.3); Blood Urea Nitrogen 7 mg/dL (9-20); Calcium 8.3 mg/dL (8.4-10.2); Carbon Dioxide 29 mmol/L (22-30); Chloride 103 mmol/L (98-107); Estimated CRCL calculation 148 ml/min; Estimated Glomerular Filt Rate > 60; Glucose 50 mg/dL (65-110); Magnesium 1.9 mg/dL (1.6-2.3); Potassium 3.6 mmol/L (3.4-5.0); Sodium 136 mmol/L (137-145)
[2022-02-27] MEDS: GLUCOSE ORAL GEL 15 GM OF GLUCSE IN 37.5 GM TUBE (07:41)
[2022-02-27 08:45] LABS: Lipase 137 U/L (23-300)
[2022-02-27 08:50] LABS: Glucose Point of Care 77 mg/dl (65-105)
--- NOTE | 2022-02-27 09:04 | PC.NURSE ---
Patient refusing for nursing staff to remove wrap on right leg. States that he sees someone weekly for care and that they are the only ones he wants to touch it. Patient also states there is a wound under bandage.
[2022-02-27] MEDS: ERGOCALCIFEROL 50,000 UNIT CAPSULE 50000 UNITS PO (11:52)
[2022-02-27 11:53] VITALS: PULSE 82
[2022-02-27] MEDS: METOPROLOL SUCCINATE EXT REL 25 MG TABCR PO (11:53)
--- NOTE | 2022-02-27 12:47 | PM.DS ---
DS: Admitting Diagnosis Discharge Date 02/27/2022 Admitting Diagnosis abdominal pain DS: Discharge Diagnosis Discharge Diagnosis (1) Acute pancreatitis: Qualifiers: Pancreatitis type: unspecified pancreatitis type Code(s): K85.90 - Acute pancreatitis without necrosis or infection, unspecified Status: Acute Assessment and Plan: ED-[facility] Patient presents with abdominal pain.? Patient reports pain started few hours prior to coming to the ER for evaluation.? Pain is in his epigastric area is constant no radiation, no clear aggravating or alleviating factors for suggest hurts.? He does report nausea and vomiting denies any diarrhea fevers cough congestion.? He reports he never had pain like this before.? He denies any urinary symptoms lightheadedness or dizziness.? Denies any chest pain or shortness of breath. patient with abdominal pain CT scan of the abdomen showed acute uncomplicated pancreatitis patient lipase elevated [id number], patient has no history that would cause acute pancreatitis, patient denies any alcohol consumption on a regular basis no family history of pancreatitis, patient liver enzymes are normal suggesting no gallbladder issue or obstruction of bile duct, patient lipid panel is normal with normal triglycerides, most likely patient has idiopathic pancreatitis to further evaluate I have ordered PHI level to rule out immunological issues, will vigorously hydrate the patient and provide pain controlled, and keep patient NPO, will monitor patient lipase is his lipase trended down will start on clear liquid and advance diet as tolerated, will continue to monitor. 02/26/2022 interval history: patient with abdominal pain CT scan of the abdomen showed acute uncomplicated pancreatitis upon arrival patient lipase elevated [id number], patient has no history that would cause acute pancreatitis, patient denies any alcohol consumption on a regular basis no family history of pancreatitis, patient liver enzymes are normal suggesting no gallbladder issue or obstruction of bile duct, patient lipid panel is normal with normal triglycerides, most likely patient has idiopathic pancreatitis to further evaluate I have ordered PHI level to rule out immunological issues which is pending patient being vigorously hydrated, and provide pain controlled, and keep patient NPO, today patient lipase have trended down to 724, will start the patient on clear liquid, will monitor patient and advance diet as tolerated, will continue to monitor (2) Peripheral vascular disease: Code(s): I73.9 - Peripheral vascular disease, unspecified Status: Acute Assessment and Plan: remains clinically stable (3) Bilateral lower extremity edema: Code(s): R60.0 - Localized edema Status: Acute Assessment and Plan: will continue to monitor and diurese the patient if needed (4) Tobacco use: Code(s): Z72.0 - Tobacco use Status: Acute Assessment and Plan: will give nicotine patch DS: Summary Hospital Course Reason for hospitalization: Chief Complaint: ?abdominal pain Narrative: ED-HPI?Patient presents with abdominal pain.? Patient reports pain started few hours prior to coming to the ER for evaluation.? Pain is in his epigastric area is constant no radiation, no clear aggravating or alleviating factors for suggest hurts.? He does report nausea and vomiting denies any diarrhea fevers cough congestion.? He reports he never had pain like this before.? He denies any urinary symptoms lightheadedness or dizziness.? Denies any chest pain or shortness of breath. ?patient with abdominal pain CT scan of the abdomen showed acute uncomplicated pancreatitis patient lipase elevated [id number],? patient has no history that would cause acute pancreatitis, patient denies any alcohol consumption on a regular basis no family history of pancreatitis, ? patient liver enzymes are normal suggesting no gallbladder issue or ob
== END 2022-02-27 16:35 | disposition home or self-care (01) | DRG 282 ==
LOC: ANHED 07:51 → ANH3MEDSUR 08:41
PROVIDERS: Admitting Provider Family Medicine; Emergency Provider Emergency Medicine; PCP Physician Assistant; Visit Provider Family Medicine
DX: K85.00 Idiopathic acute pancreatitis without necrosis or infection (principal); I73.9 Peripheral vascular disease, unspecified; R60.0 Localized edema; I25.10 Atherosclerotic heart disease of native coronary artery without angina pectoris; J44.9 Chronic obstructive pulmonary disease, unspecified; I10 Essential (primary) hypertension; F17.210 Nicotine dependence, cigarettes, uncomplicated; Z86.718 Personal history of other venous thrombosis and embolism; Z86.711 Personal history of pulmonary embolism; Z95.5 Presence of coronary angioplasty implant and graft
CPT/HCPCS: 36415; 74176; 80053; 80061; 81001; 82948; 83690; 83735; 84484; 85025; 85027; 86038; 93005; 96361; 96374; 96375; 96376; 99285; A9270; G0378; G0379; J0131; J1170; J1644; J2270; J2405; J2550; J7030

== ENCOUNTER 2023-03-21 13:31 | Emergency (ER) | payer BC, SELFPAY ==
[2023-03-21 13:38] VITALS: BP 129/80; PULSE 65; RESP 16; TEMP 36.1; O2SAT 95
--- NOTE | 2023-03-21 13:48 | ED.UPPEXIN ---
HPI - Extremity Injury (Upper) General Chief Complaint: Extremity Injury, Upper Stated Complaint: Left Elbow Pain Time Seen by Provider: 03/21/23 13:48 Source: patient Mode of arrival: ambulatory Limitations: no limitations History of Present Illness HPI narrative: 62-year-old male presents with complaint of abrasion to left elbow for 4 days. Patient concerned for infection due to redness and warmth. Patient states that he was cleaning out his garage and tripped and fell onto left elbow. He is not concerned for fracture. States his tetanus is up-to-date. Afebrile. All systems reviewed and negative except as noted above. Related Data Home Medications Medication Instructions Recorded Confirmed apixaban 5 mg tablet (Eliquis) 5 mg PO BID 04/21/21 02/25/22 atorvastatin 80 mg tablet 80 mg PO HS 04/21/21 02/25/22 metoprolol succinate 25 mg 25 mg PO DAILY 04/21/21 02/25/22 tablet,extended release 24 hr sertraline 50 mg tablet mg 03/21/23 Allergies Allergy/AdvReac Type Severity Reaction Status Date / Time No Known Allergies Allergy Verified 03/21/23 13:35 Review of Systems Review of Systems: CONSTITUTIONAL: Denies fever, chills, or sweats. EYES: Denies visual changes, redness, or discharge. ENT: Denies rhinorrhea, congestion, sore throat, or otalgia. CARDIOVASCULAR: Denies chest pain, palpitations, or edema. RESPIRATORY: Denies cough or dyspnea. GASTROINTESTINAL: Denies abdominal pain, nausea, vomiting, or diarrhea. GENITOURINARY: Denies dysuria or hematuria. SKIN: Reports pain, redness and warmth to left elbow. MUSCULOSKELETAL: Denies back pain, joint pain, or myalgia. NEUROLOGIC: Denies headache, numbness, or weakness. PSYCHIATRIC: Denies anxiety or depression. All other systems reviewed are negative, except as documented in HPI. [facility] Past Medical History Medical History CAD (coronary artery disease) COPD (chronic obstructive pulmonary disease) High cholesterol History of DVT (deep vein thrombosis) History of pulmonary embolism HTN (hypertension) Surgical History Surgical History History of heart artery stent Hx of hand surgery Family History Family History Mother Ovarian cancer Social History Social History Smoking packs per day: 0.5 Smoking cigarettes per day: 10.0 Smoking status: Current every day smoker Tobacco type: cigarettes Alcohol intake: former Substance use: never Substance use type: does not use Living arrangements: alone Spiritual care concerns: No Comments At time of signature, agree with nursing past medical, surgical, social and family history. There is no relevant family history pertinent to the presenting complaint. Exam Narrative: GENERAL: This is a well-nourished, well-developed patient, in no apparent distress. HEAD: normocephalic, atraumatic. EYES: PERRL. Sclera clear/white. Vision is grossly intact. EARS: External ears normal NOSE: External nose normal NECK: Neck supple, non-tender without lymphadenopathy, masses or thyromegaly. CARDIOVASCULAR: Regular rate and rhythm without murmurs, gallops, or rubs. RESPIRATORY: Clear to auscultation. Breath sounds equal bilaterally. No wheezes, rales, or rhonchi. SKIN: warm, Dry, intact with no suspicious lesions or rash, good texture and turgor. several small abrasion to L elbow. erythema 8 x 8cm diameter with mild warmth and swelling. NEURO: awake, alert, and oriented to person, place and time. There were no obvious focal neurologic abnormalities. EXTREMITIES: No joint tenderness, effusion, or edema noted. Course Course Level of Care: Express Care Visit Vital Signs Vital signs: Vital Signs Temperature 36.1 C L 03/21/23 13:38 Pulse Rate 65 07/0
== END 2023-03-21 14:00 | disposition home or self-care (01) ==
PROVIDERS: Emergency Provider Nurse Practitioner Family; PCP Physician Assistant
DX: L03.114 Cellulitis of left upper limb (principal); F17.210 Nicotine dependence, cigarettes, uncomplicated; I25.10 Atherosclerotic heart disease of native coronary artery without angina pectoris; J44.9 Chronic obstructive pulmonary disease, unspecified; E78.00 Pure hypercholesterolemia, unspecified; I10 Essential (primary) hypertension; Z86.718 Personal history of other venous thrombosis and embolism; Z86.711 Personal history of pulmonary embolism
CPT/HCPCS: 99213; G0463